=== PATIENT | male | born 1990 | race Caucasian/White ===

== ENCOUNTER 2020-04-28 11:24 | Outpatient (CLI) | payer OTHER, SELFPAY ==
--- NOTE | ~2020-04-28 | US_ITS ---
EXAMINATION: US scrotum doppler DATE: 04/28/2020 12:18 INDICATION: Left scrotal pain, patient reportedly finished a round of antibiotics for left testicular pain TECHNIQUE: Testicular sonogram utilizing grayscale and Doppler COMPARISON: None. FINDINGS: The right testis measures 5.1 x 3.1 x 2.7 cm. The left testis measures 4.5 x 2.9 x 3.7 cm. There is a subtle hypoechoic area of the left testicle with mildly increased vascular flow. There is normal vascular flow to both testes. The right epididymis is normal with normal vascular flow. The le ft epididymis is normal with normal vascular flow. There is no varicocele or hydrocele. IMPRESSION: 1. Subtle hypoechoic area of the left testicle which could reflect orchitis. Consider further antibio tic therapy and follow-up ultrasound if symptoms do not resolve. Reviewed, dictated and finalized at location A. IMPRESSION: 1. Subtle hypoechoic area of the left testicle which could reflect orchitis. Co nsider further antibiotic therapy and follow-up ultrasound if symptoms do not r esolve.
== END 2020-04-28 11:25 | disposition home or self-care (01) ==
PROVIDERS: PCP Family Medicine Adolescent Medicine; Visit Provider Family Medicine Adolescent Medicine
DX: N50.812 Left testicular pain (principal)
CPT/HCPCS: 76870; 93976

== ENCOUNTER 2025-02-25 08:41 | Outpatient (CLI) | payer OTHER, SELFPAY ==
[2025-02-25 09:23] LABS: Basophils Absolute Auto 0.1 K/mm3 (0.0-0.1); Basophils Percent Auto 1.7 % (0.2-1.2); Eosinophils Absolute Auto 0.2 K/mm3 (0-0.3); Eosinophils Percent Auto 8.2 % (0-4.4); Hematocrit 40.7 % (42.0-52.0); Hemoglobin 13.7 g/dL (14.0-18.0); Lymphocytes Percent Auto 44.4 % (18.3-44.2); Mean Corpuscular HGB Conc 33.7 g/dl (32-36); Mean Corpuscular Hemoglobin 30.7 pg (26-34); Mean Corpuscular Volume 91.3 fl (80-100); Mean Platelet Volume 10.7 fl (7.4-10.4); Monocytes Absolute Auto 0.4 K/mm3 (0.1-0.6); Monocytes Percent Auto 11.9 % (2.6-8.5); Neutrophils Percent Auto 33.8 % (45.5-73.1); Platelet Count Result 182 k/mm3 (150-375); Red Blood Count 4.46 M/mm3 (4.6-6.20); White Blood Count 2.9 K/mm3 (4.5-10.0)
[2025-02-25 10:10] LABS: Atypical Lymphocytes Present; Platelet Estimate Adequate (Adequate); Schistocytes None Seen
== END 2025-02-25 08:42 | disposition home or self-care (01) ==
PROVIDERS: PCP Family Medicine Adolescent Medicine; Visit Provider Family Medicine
DX: D72.819 Decreased white blood cell count, unspecified (principal)
CPT/HCPCS: 36415; 82607; 82746; 85025

== ENCOUNTER 2025-02-26 08:39 | Outpatient (CLI) | payer OTHER, SELFPAY ==
--- NOTE | 2025-02-26 08:40 | EST_ITS ---
Patient Info Name: Betito Us Age: 34 years : 1990 Gender: Male Ht: 72 in Wt: 160 lbs BSA: 1.92 m2 HR: 75 bpm BP: 119 / 69 mmHg Exam Date: 02/26/2025 8:52 AM Exam Location: Echo Lab Patient Status: Outpatient Admit Date: 02/26/2025 Staff Ordering Physician: Alicia Torrez DO Attending Provider: Alicia Torrez DO Exercise Technologist: Adrianne Abraham [facility] Exercise Physician: Alex Boyd DO Exam Type: CA stress test treadmill Study Info A treadmill exercise stress test was performed. Summary 1. 1. Negative Jd exercise stress test for ischemic ST changes by ECG criteria. 2. 2. Good functional capacity, achieving 12 METs of workload. 3. 3. Appropriate HR response to exercise. 4. 4. Appropriate HR recovery at 1 minute post exercise. 5. 5. No imaging with stress testing. 6. 6. Patient informed of the above results. Protocol: Jd Stress ECG Details Stage: REST Duration (min): 1 min : 23 sec Speed (mph): 0.0 Grade (%): 0 HR (bpm): 77 SBP (mmHg): 119 DBP (mmHg): 69 METS: --- Stage: REST Duration (min): 7 min : 31 sec Speed (mph): 0.0 Grade (%): 0 HR (bpm): 90 SBP (mmHg): 119 DBP (mmHg): 69 METS: --- Stage: STAGE 1 Duration (min): 1 min : 0 sec Speed (mph): 1.7 Grade (%): 10 HR (bpm): 99 SBP (mmHg): 119 DBP (mmHg): 69 METS: --- Stage: STAGE 1 Duration (min): 2 min : 0 sec Speed (mph): 1.7 Grade (%): 10 HR (bpm): 102 SBP (mmHg): 119 DBP (mmHg): 69 METS: --- Stage: STAGE 1 Duration (min): 3 min : 0 sec Speed (mph): 1.7 Grade (%): 10 HR (bpm): 104 SBP (mmHg): 160 DBP (mmHg): 71 METS: --- Stage: STAGE 2 Duration (min): 1 min : 0 sec Speed (mph): 2.5 Grade (%): 12 HR (bpm): 109 SBP (mmHg): 160 DBP (mmHg): 71 METS: --- Stage: STAGE 2 Duration (min): 2 min : 0 sec Speed (mph): 2.5 Grade (%): 12 HR (bpm): 113 SBP (mmHg): 182 DBP (mmHg): 71 METS: --- Stage: STAGE 2 Duration (min): 3 min : 0 sec Speed (mph): 2.5 Grade (%): 12 HR (bpm): 118 SBP (mmHg): 182 DBP (mmHg): 71 METS: --- Stage: STAGE 3 Duration (min): 1 min : 0 sec Speed (mph): 3.4 Grade (%): 14 HR (bpm): 122 SBP (mmHg): 146 DBP (mmHg): 72 METS: --- Stage: STAGE 3 Duration (min): 2 min : 0 sec Speed (mph): 3.4 Grade (%): 14 HR (bpm): 126 SBP (mmHg): 146 DBP (mmHg): 72 METS: --- Stage: STAGE 3 Duration (min): 3 min : 0 sec Speed (mph): 3.4 Grade (%): 14 HR (bpm): 133 SBP (mmHg): 128 DBP (mmHg): 74 METS: --- Stage: STAGE 4 Duration (min): 1 min : 0 sec Speed (mph): 4.2 Grade (%): 16 HR (bpm): 161 SBP (mmHg): 128 DBP (mmHg): 74 METS: --- Stage: STAGE 4 Duration (min): 2 min : 0 sec Speed (mph): 4.2 Grade (%): 16 HR (bpm): 173 SBP (mmHg): 144 DBP (mmHg): 40 METS: --- Stage: STAGE 4 Duration (min): 2 min : 0 sec Speed (mph): 4.2 Grade (%): 16 HR (bpm): 173 SBP (mmHg): 144 DBP (mmHg): 40 METS: --- Stage: RECOVERY Duration (min): 0 min : 59 sec Speed (mph): 0.0 Grade (%): 0 HR (bpm): 143 SBP (mmHg): 183 DBP (mmHg): 63 METS: --- Stage: RECOVERY Duration (min): 1 min : 59 sec Speed (mph): 0.0 Grade (%): 0 HR (bpm): 129 SBP (mmHg): 183 DBP (mmHg): 63 METS: --- Stage: RECOVERY Duration (min): 2 min : 59 sec Speed (mph): 0.0 Grade (%): 0 HR (bpm): 100 SBP (mmHg): 157 DBP (mmHg): 70 METS: --- Stage: RECOVERY Duration (min): 3 min : 9 sec Speed (mph): 0.0 Grade (%): 0 HR (bpm): 95 SBP (mmHg): 157 DBP (mmHg): 70 METS: --- Rest HR: 90 bpm Peak HR: 173 bpm Rest Sys BP: 119 mmHg Peak Sys BP: 183 mmHg Max Pred HR: 188 bpm % Max Pred HR: 92 % Target HR: 160 bpm Max RPP: 31,659 bpm*mmHg Jeong Score: -8 Termination Reason: Reached target heart rate or workload Cardiac Symptoms: Shortness of breath Max ST Seg Deviation: 3.70 mm Total Time: 11 min : 0 sec Rest Fuentes BP: 69 mmHg Peak Fuentes BP: 63 mmHg Angina Score: None Total METS: 12.1 Resting ECG Sinus rhythm. Stress ECG No ST changes. Arrhythmias None. Report Signatures
== END 2025-02-26 08:40 | disposition home or self-care (01) ==
LOC: ANHCARD 08:40
PROVIDERS: PCP Family Medicine Adolescent Medicine; Visit Provider Family Medicine
DX: R07.9 Chest pain, unspecified (principal)
CPT/HCPCS: 93017

== ENCOUNTER 2025-04-25 14:08 | Outpatient (CLI) | payer OTHER, SELFPAY ==
--- NOTE | 2025-04-25 14:26 | CY_PTH ---
PATIENT: Betito Us LOC: ANHLAB #:[id number] AGE/SX: 34/M ROOM: RE04/25/[address]: Owen Holloway MD : 1990 BED: DIS: 04/25/2025 SPEC #: [id number] RECD: 04/26/25 07:49 STATUS: ANOOP REQ #: [id number] [place]: 04/25/25 14:[address]: Owen Holloway DEPT: [facility] Cytology RECD BY: Radha Saravia ENTERED: 04/26/25 07:50 SP TYPE: Cytology OTHR DR: Allen Lundberg MD Tissues: A - Flow Procedures: Flow Cytometry
[2025-04-25 14:33] LABS: Basophils Absolute Auto 0.1 K/mm3 (0.0-0.1); Basophils Percent Auto 0.6 % (0.2-1.2); Eosinophils Absolute Auto 0.3 K/mm3 (0-0.3); Eosinophils Percent Auto 3.7 % (0-4.4); Hematocrit 41.1 % (42.0-52.0); Immature Granulocyte Absolute 0.03 K/mm3 (0.00-0.031); Immature Granulocyte Percent A 0.4 % (0-0.5); Lymphocytes Absolute Auto 1.37 K/mm3 (0.9-3.2); Lymphocytes Percent Auto 16.3 % (18.3-44.2); Mean Corpuscular HGB Conc 34.1 g/dl (32-36); Mean Corpuscular Hemoglobin 30.8 pg (26-34); Mean Corpuscular Volume 90.3 fl (80-100); Mean Platelet Volume 10.3 fl (7.4-10.4); Monocytes Absolute Auto 0.5 K/mm3 (0.1-0.6); Monocytes Percent Auto 6.3 % (2.6-8.5); Neutrophils Absolute Auto 6.1 K/mm3 (1.3-6.7); Neutrophils Percent Auto 72.7 % (45.5-73.1); Platelet Count Result 222 k/mm3 (150-375); Red Blood Count 4.55 M/mm3 (4.6-6.20); Red Cell Distribution Width 11.9 % (11.5-14.5); White Blood Count 8.4 K/mm3 (4.5-10.0)
--- OUTSIDE RECORDS SUMMARY | 2025-04-25 14:43 | XMS_ITS | Clinical Summary ---
Author Organization [facility] gunn [facility] Address [address] [place] [address] Care Team Providers Care Recooperer Name Role Phone Unavailable Primary Care Provider Unavailabl e Allergies Active Allergy Reactions Criticality Noted Date Comments Penicillins Hives High 04/25/2025 Medications omeprazole (PriLOSEC) 20 mg Capsule, Delayed Release(E.C.) Take 20 mg by mouth daily. Active Active Problems No known active problems Encounters Date Type Department Care Team Description 04/25/2025 1:30 PM CDT Office Visit [facility] Oncology and Hematology - [place] [address] [place] [address] Owen Holloway MD Chronic anemia (Primary Dx); Leukopenia, unspecified type from Last 3 Months Family History Medical History Relation Name Comments No Known Problems Brother Atrial fibrillation Father Heart Attack Father Heart Disease Father No Known Problems Mother Relation Name Status Comments Brother Alive Father Alive Mother Alive Social History Tobacco Use Types Packs/Day Years Used Date Smoking Tobacco: Never Smokeless Tobacco: Never Tobacco Cessation:Counseling Given: Not Answered Alcohol Use Standard Drinks/Week Comments Yes 0 (1 standard drink = 0.6 oz pur e alcohol) Socially Sex and Gender Information Value Date Recorded Sex Assigned at Not on file Legal Sex Male 2:25 PM CDT Gender Identity Not on file Sexual Orientation Not on file Last Filed Vital Signs Vital Sign Reading Time Taken Comments Blood Pressure 122/78 04/25/2025 1:19 PM CDT Pulse 83 04/25/2025 1:19 PM CDT Temperature 36.4 C (97.5 F) 04/25/2025 1:19 PM CDT Respiratory Rate 14 04/25/2025 1:19 PM CDT Oxygen Saturation 98% 04/25/2025 1:19 PM CDT Inhaled Oxygen Concentration - - Weight 71.8 kg (158 lb 3.2 oz) 04/25/2025 1:19 P M CDT Height 182.9 cm (6') 04/25/2025 1:19 PM CDT Body Mass Index 21.46 04/25/2025 1:19 PM CDT Plan of Treatment Upcoming Encounters Date Type Department Care Team (Late st Contact Info) Description 05/27/2025 4:30 PM CDT Telephone Check Up [facility] Oncology and Hematology - [place] [address] [facility] [address] [place] [address] Owen Holloway MD [address] [place] [address] Health Maintenance Due Date Last Done Comments DTAP/TDAP/TD VACCINES (1 - Tdap) 2011 HEPATITIS B VACCINES (1 of 3 - 19+ 3-dose series) 2011 INFLUENZA VACCINE (#1) 2024 Preventative Visit- Commercial 11/14/2024 HPV VACCINES Aged Out No longer eligi ble based on patient's age to complete this topic Insurance [facility] [id number]
--- OUTSIDE RECORDS SUMMARY | 2025-04-25 14:43 | XMS_ITS | Encounter Summary ---
Author Organization [facility] Address [address] [place] [address] Care Team Providers Care Lime Hide Inspector Name Role Phone Unavailable Primary Care Provider Unavailabl e Reason for Referral * Radiology Services (Routine) - Closed Specialty Diagnoses / Procedures Referred By Carylac t Referred To Contact Diagnoses Leukopenia, unspecified type Procedures US ABDOMEN COMPLETE Oewn Holloway MD [address] [place] [address] Phone: tel: fax: [place] [phone] Referral ID Status Reason Start Date Expiration Date V isits Requested Visits Authorized [id number] Closed [facility] CTS 04/25/2025 05/26/2026 1 1 Reason for Visit * Reason Comments Establish Care Encounter Details Date Type Department Care Team (Late st Contact Info) Description 04/25/2025 1:30 PM CDT Office Visit [facility] Oncology and Hematology [address] [place] [address] Owen Holloway MD [address] [place] [address] Chronic anemia (Primary Dx); Leukopenia, unspecified type Social History Tobacco Use Types Packs/Day Years [...] on file Sexual Orientation Not on file documented as of this encounter Last Filed Vital Signs Vital Sign Reading [...] Mass Index 21.46 04/25/2025 1:19 PM CDT documented in this encounter Progress Notes * Owen Holloway MD - 04/25/2025 1:33 PM CDT Hematology-oncology consult Note Requesting Physician Primary Care Physician No primary care provider on file. Problem list There is no problem list on file for this patient. Previous TREATMENT ? Measurable Disease ? Reason for Visit Betito Us is a 34 y.o. male who was referred for consultation for anemia and neutropenia. History of present illness This is a pleasant 34-year-old male who has been in great health except history of gastroesophageal reflux disease for which he takes omeprazole as needed referred to me for the low white cell. Patient has no previous history of neutropenia and was told recently about the leukopenia when labs were done in January 2025 showed WBC count of 3.3. Repeat labs on February 25 showed further reducedWBC count of 2.9 with hemoglobin of 13.7. Denies any history of infection at that time but had recent sinus infection 2 weeks ago. He denies any history of liver disease. He drinks 6 beers and hard liquor on the weekends. Denies any weight loss. Denies any night sweats fevers and chills. Denies anyautoimmune send problems like rash and arthritis. No other new complaints. Past Medical History Past Medical History: Diagnosis Date Hyperlipidemia GERD Surgical History Past Surgical History: Procedure Laterality Date HX ACL RECONSTRUCTION Right 2015 Medications Current Outpatient Medications Medication Sig Dispense Refill omeprazole (PriLOSEC) 20 mg Capsule, Delayed Release(E.C.) Take 20 mg by mouth daily. No current facility-administered medications for this visit. Allergies Allergies Allergen Reactions Penicillins Hives Immunizations: There is no immunization history on file for this patient. Family History Family History Problem Relation Name Age of Onset Heart Disease Father Heart Attack Father Atrial fibrillation Father No Known Problems Mother No Known Problems Brother Social History Social History Tobacco Use Smoking status: Never Smokeless tobacco: Never Substance Use Topics Alcohol use: Yes Comment: Socially Review of Systems Constitutional: Patient did not mention fever; no night sweats; no anorexia; no weight loss; no fatique NEENT: Patient did not mention headache; no change in vision; no change in hearing; no sore throat;no dysphagia Respiratory: Patient did not mention shortness of breath; no pleuritic chest pain; no cough; no hemoptysis Cardiac: Patient did not mention cardiac-like chest pain; no palpitations; no orthopnea; no PND; noDOE GI: Patient did not mention abdominal pain; no nausea; no vomiting; no diarrhea; no hematochezia; no melena : Patient did not mention dysuria; no frequency; no hesitancy; no hematuria DEHAIRER: Musculosketetal: Patient did not mention bone pain; no arthralgia; no joint swelling; no myalgia; Skin: Patient did not mention pruritis; no rash; no petechiae; no ecchymoses Endocrine: Patient did not mention polydipsia; no polyuria; no unusual weight gain Neuro: Patient did not mention headache; no change in vision; no sensory changes; no muscle weakness; no confusion; no seizures Psych: Patient did not mention anxiety; no depression; Physical Exam Vitals: As per nursing note Constitutional: Well developed, well nourished, no acute distress, non-toxic appearance Teeth and gum. No signs of infection or swelling. Eyes: PERRL, conjunctiva normal HEENT: Atraumatic, external ears normal, nose normal, oropharynx moist, no pharyngeal exudates. no sinus tenderness Neck- normal range of motion, no tenderness, supple Respiratory: No respiratory distress, normal breath sounds, no rales, no wheezing Cardiovascular: Normal rate, normal rhythm, no murmurs, no gallops, no rubs GI: Soft, nondistended, normal bowel sounds, nontender, no splenomegaly, no hepatomegaly, no mass, no rebound, no guarding : No costovertebral angle tenderness Musculoskeletal: No edema, no tenderness, no deformities. Back- no tenderness Integument: Well hydrated, no rash, Digits and nails inspection normal Lymphatic: No lymphadenopathy noted Neurologic: Alert & oriented x 3, CN 2-12 normal, normal motor function, normal sensory function, no focal deficits noted Psychiatric: Speech and behavior appropriate ? labs No results found for this or any previous visit (from the past 24 hours). Labs from February 25 showed WBC 2.9 hemoglobin 13.7 platelet 182,000 neutrophils 33% lymphocyte 44% Pathology ? Imaging & Other Studies Performance Status? Assessment / Plan: ? Neutropenia and normocytic anemia. Patient is a pleasant 34-year-old male with history ofgastroesophageal reflux disease. He denies any history of liver disease. He drinks 6 beers and couple of hard liquors on the weekends. Denies any previous history of heavy alcohol consumption. Deniesany night sweats fevers and chills. Weight and appetite stable. No other new complaints. I have reviewed the labs and discussed the differential diagnosis of leukopenia with the patient in detail. Wediscussed the possibility of infection related neutropenia, autoimmune leukopenia, nutritional deficiencies, liver disease any spleen disorders, bone marrow disorders like leukemia and lymphoma and po ssibility of benign essential leukopenia. I will order the workup including CBC with differential, CMP, ELIZABETH, iron profile, B12 and folic acid level and flow cytometric analysis for leukemia. I will also order abdominal ultrasound. Follow-up phone visit in 2 weeks. I have answered all the question to patient satisfaction. GERD. He is on Prilosec and stable. Thank you very much for allowing me to participate in Betito Us's evaluation and management. Please feel free to contact if I can be of any further assistance in your patient???s care requiring hematology or oncology evaluation. Sincerely, ? ? Owen Holloway M.D. cell TOBACCO COUNSELING He is not a tobacco/nicotine user. Owen Holloway MD ,04/25/2025 2:00 PM ? Total time spent 60 minutes, two third of the total time spent counseling patient [id number]. CC:? documented in this encounter Plan of Treatment Upcoming Encounters Date Type Department Care Team (Late st Contact Info) Description 05/27/2025 4:30 PM CDT Telephone Check Up [facility] Oncology and Hematology - [place] [address] [place] [id number] Owen Holloway MD [address] [facility] [address] [place] [address] Scheduled Orders Name Type Priority Associated Diagnoses Orde r Schedule ELIZABETH SCREEN W/REFLEX Lab Routine Leukopenia, unspecified type Expected: 04/25/2025, Expires: 04/25/2026 CBC WITH DIFFERENTIAL Lab Stat Chronic anemia Expected: 04/25/2025, Expires: 04/25/2026 COMPREHENSIVE METABOLIC PANEL Lab Stat Chronic anemia Expected: 04/25/2025, Expires: 04/25/2026 FERRITIN Lab Routine Chronic anemia Expected: 04/25/2025, Expires: 04/25/2026 IRON, TIBC, AND PERCENT SATURATION Lab Routine Chronic anemia Expected: 04/25/2025, Expires: 04/25/2026 METHYLMALONIC ACID Lab Routine Chronic anemia Expected: 04/25/2025, Expires: 04/25/2026 TRANSFERRIN RECEPTOR TFR SOLUBLE Lab Routine Chronic anemia Expected: 04/25/2025, Expires: 04/25/2026 VITAMIN B12 AND FOLATE Lab Routine Chronic anemia Expected: 04/25/2025, Expires: 04/25/2026 US ABDOMEN COMPLETE Imaging Routine Leukopenia, unspecified type 1 Occurrences starting 04/25/2025 until 04/25/2026 FLOW CYTOMETRY PANEL Lab Routine Leukopenia, unspecified type Expected: 04/25/2025, Expires: 04/25/2026 documented as of this encounter Visit Diagnoses Diagnosis Chronic anemia- Primary Anemia, unspecified Leukopenia, unspecified type documented in this encounter
[2025-04-25 16:39] LABS: Iron 134 ug/dL (49-181)
[2025-04-25 16:50] LABS: Percent Iron Saturation 39 % (20-50)
[2025-04-25 16:51] LABS: Alanine Aminotransferase 39 U/L (6-50); Albumin Level 4.8 g/dL (3.5-5.1); Alkaline Phosphatase 80 U/L (38-126); Anion Gap 10 mmol/L (4-12); Aspartate Amino Transferase 55 U/L (17-59); Bilirubin,Total 0.7 mg/dL (0.2-1.3); Blood Urea Nitrogen 15 mg/dL (9-20); Calcium 9.7 mg/dL (8.4-10.2); Carbon Dioxide 27 mmol/L (22-30); Chloride 104 mmol/L (98-107); Estimated Glomerular Filt Rate > 60; Glucose 93 mg/dL (65-110); Potassium 4.5 mmol/L (3.4-5.0); Sodium 141 mmol/L (137-145); Total Protein 8.1 g/dL (6.3-8.2)
[2025-04-25 18:00] LABS: Folic Acid 10.4 ng/mL (2.76->20)
[2025-04-30 02:24] LABS: Methylmalonic Acid 127 nmol/L (55-335)
[2025-04-30 13:29] LABS: Soluble Transferrin Receptor 0.95 mg/L (0.76-1.76)
== END 2025-04-25 14:09 | disposition home or self-care (01) ==
LOC: ANHLAB 14:09
PROVIDERS: PCP Family Medicine Adolescent Medicine; Visit Provider Internal Medicine Hematology & Oncology
DX: D72.819 Decreased white blood cell count, unspecified (principal); D64.9 Anemia, unspecified
CPT/HCPCS: 36415; 80053; 82607; 82728; 82746; 83540; 83550; 83921; 84238; 85025; 86038; 86039; 88184

== ENCOUNTER 2025-05-21 09:16 | Outpatient (CLI) | payer OTHER, SELFPAY ==
--- NOTE | ~2025-05-21 | US_ITS ---
US abdomen complete EXAMINATION: US Abdomen Complete INDICATION: Leukopenia PROCEDURE: Realtime High Resolution abdomen ultrasound. COMPARISON: Ultrasound dated 12/17/2017 FINDINGS: There is a 4 mm gallbladder polyp near the gallbladder neck. No stones, gallbladder wall th ickening or pericholecystic fluid. Common bile duct measures 3 mm. Liver echotexture within normal limits without focal mass. Pancreas within normal limits. Pancreati c tail is obscured by bowel gas. Spleen is unremarkeable. Renal echotexture is within normal limits bilaterally without hydronephrosis, contour deforming mass or renal stone. Right kidney measures 10.6 cm. Left kidney measures 11.6 cm. Visualized aspects of the aorta and IVC are within normal limits. Portal vein is patent. No sonograph ic Rausch's sign indicated by the technologist. IMPRESSION: 1: Gallbladder polyp measuring 4 mm. Reviewed, dictated and finalized at location A.
--- OUTSIDE RECORDS SUMMARY | 2025-05-21 09:24 | XMS_ITS | Clinical Summary ---
Author Organization [facility] Amanda gunn Joeflo Address [address] [place] [address] Care Team Providers Care Solar Installer Pv Name Role Phone Unavailable Primary Care Provider Unavailabl e Allergies Active Allergy Reactions Criticality Noted Date Comments Penicillins Hives High 04/25/2025 Medications omeprazole (PriLOSEC) 20 mg Capsule, Delayed Release(E.C.) Take 20 mg by mouth daily. Active Active Problems No known active problems Encounters Date Type Department Care Team Description 05/14/2025 External Device Data STL ABSTRACTION Provider, Abstract 05/14/2025 External Device Data STL ABSTRACTION Provider, Abstract 05/14/2025 External Device Data STL ABSTRACTION Provider, Abstract 05/06/2025 Orders Only [facility] Oncology and Hematology - [place] [address] [place] [id number] Owen Holloway MD 05/01/2025 External Device Data STL ABSTRACTION Provider, Abstract 05/01/2025 Orders Only [facility] Oncology and Hematology - [place] [address] [place] [address] Oewn Holloway MD 04/30/2025 External Device Data STL ABSTRACTION Provider, Abstract 04/30/2025 External Device Data STL ABSTRACTION Provider, Abstract 04/30/2025 Orders Only [facility] Oncology and Hematology - [place] [facility] [address] [place] [address] Owen Holloway MD 04/30/2025 Abstract [facility] Oncology and Hematology - [place] [address] [place] [address] Owen Holloway MD 04/26/2025 Orders Only [facility] Oncology and Hematology - [place] [address] [place] [address] Owen Holloway MD 04/25/2025 1:30 PM CDT Office Visit [facility] Oncology and Hematology - [place] [address] [place] [address] Owen Holloway MD Chronic anemia (Primary Dx); Leukopenia, unspecified type 04/25/2025 Orders Only [facility] Oncology and Hematology - [place] [address] [place] [address] Owen Holloway MD from Last 3 Months Family History Medical [...] 05/27/2025 4:30 PM CDT Telephone Check Up [facility] Oncology and Hematology - [place] [address] [place] [address] Owen Holloway MD [address] [facility] [address] [place] [address] Health Maintenance Due Date Last Done Comments DTAP/TDAP/TD VACCINES (1 - Tdap) 2011 HEPATITIS B VACCINES (1 of 3 - 19+ 3-dose series) 2011 INFLUENZA VACCINE (#1) 2025 HPV VACCINES Aged Out No longer eligi ble based on patient's age to complete this topic Procedures Procedure Name Priority Date/Time Associated Diagnosis Comments FLOW CYTOMETRY REPORT Routine 04/26/2025 11:03 AM CDT CHG NUCLEAR ANTIGEN ANTIBODY Routine 04/25/2025 5:14 PM CDT CBC WITH AUTODIFFERENTIAL Routine 2024 4:19 PM CDT TRANSFERRIN RECEPTOR TFR SOLUBLE Routine 04/25/2025 2:16 PM CDT COMPREHENSIVE METABOLIC PANEL Routine 04/25/2025 10:33 AM CDT COMPREHENSIVE METABOLIC PANEL Routine 04/25/2025 10:15 AM CDT from Last 3 Months Results * FLOW CYTOMETRY REPORT (04/26/2025 11:03 AM CDT) us Owen Holloway MD PATHOLOGY/CYTOLOGY ORDERABLES F inal Result * CHG NUCLEAR ANTIGEN ANTIBODY (04/25/2025 5:14 PM CDT) us Owen Holloway MD CHG - LABORATORY Final Result * CBC WITH AUTODIFFERENTIAL (04/25/2025 4:19 PM CDT) Blood us Owen Holloway MD HEMATOLOGY ORDERABLES Final Res ult * TRANSFERRIN RECEPTOR TFR SOLUBLE (04/25/2025 2:16 PM CDT) Blood Owen Holloway MD CHEMISTRY ORDERABLES Final Resu lt * COMPREHENSIVE METABOLIC PANEL (04/25/2025 10:33 AM CDT) Only the most recent of2 resultswithin the time period is included. Blood Owen Holloway MD CHEMISTRY ORDERABLES Final Resu lt from Last 3 Months Insurance
== END 2025-05-21 09:17 | disposition home or self-care (01) ==
PROVIDERS: PCP Family Medicine Adolescent Medicine; Visit Provider Internal Medicine Hematology & Oncology
DX: D72.819 Decreased white blood cell count, unspecified (principal); K82.4 Cholesterolosis of gallbladder
CPT/HCPCS: 76700